=== PATIENT | male | born 1970 | race Caucasian/White ===

== ENCOUNTER 2022-03-24 03:35 | Emergency (ER) | payer OTHER ==
[~2022-03-24] VITALS: Ht 175.3 cm; Wt 86.4 kg
[2022-03-24] MEDS ORDERED: KETOROLAC TROMETHAMINE 30 MG/ML VIAL IM ONE (03:45)
[2022-03-24] MEDS ORDERED: ACETAMINOPHEN 500 MG TABLET PO ONE (03:45)
[2022-03-24 04:30] LABS: BASOPHILS % (AUTO) 0.9 % (0.0-2.0); EOSINOPHILS % (AUTO) 0.9 % (1.0-6.0); HEMATOCRIT 40.1 % (41-53); HEMOGLOBIN 13.8 g/dL (13.5-17.5); LYMPHOCYTES % (AUTO) 9.3 % (22.0-44.0); MEAN CORPUSCULAR HEMOGLOBIN 30.9 pg (26.0-34.0); MEAN CORPUSCULAR HGB CONC 34.5 G/dL (31.0-37.0); MEAN CORPUSCULAR VOLUME 90 fL (80-100); MONOCYTES # (AUTO) 0.8 K/uL (0.1-1.0); MONOCYTES % (AUTO) 6.6 % (2.0-9.0); NEUTROPHILS # (AUTO) 9.3 K/uL (1.8-7.7); NEUTROPHILS % (AUTO) 82.3 % (40.0-70.0); PLATELET COUNT (AUTO) 291 K/uL (150-450); RED BLOOD CELL COUNT(AUTO) 4.48 MIL/uL (4.50-5.90); RED CELL DISTRIBUTION WIDTH 13.1 % (11.5-14.5)
[2022-03-24 04:38] LABS: ANION GAP 7 mmol/L (8-16); CALCIUM, TOTAL 8.8 mg/dL (8.8-10.5); CARBON DIOXIDE 27 mmol/L (22-29); CHLORIDE 105 mmol/L (98-107); CREATININE 1.01 mg/dL (0.60-1.30); GLOMERULAR FILTR. RATE CALC > 60 mL/min (>60); GLUCOSE,RANDOM 105 mg/dL (70-110); POTASSIUM 3.8 mmol/L (3.5-5.1); SODIUM SERUM 139 mmol/L (136-145); UREA NITROGEN, BLOOD 19 mg/dL (7-18)
[2022-03-24] MEDS ORDERED: IOHEXOL 350 MG/ML 150 ML VIAL ONE (04:47)
[2022-03-24] MEDS ORDERED: SODIUM CHLORIDE 0.9% 100 ML ONE (04:47)
[2022-03-24] MEDS ORDERED: LIDOCAINE 1%/EPI 1:100,000 30 ML VIAL SQ ONE (05:00)
[2022-03-24 05:48] LABS: PROTHROMBIN TIME 10.7 SEC (9.4-11.6)
[2022-03-24] MEDS ORDERED: FentaNYL CITRATE PF 100 MCG/2 ML VIAL IVP ONE (06:45)
[2022-03-24 06:47] VITALS: BP 151/91
== END 2022-03-24 07:41 | disposition short-term general hospital (02) ==
LOC: EMS 03:37
DX: S22.42XA Multiple fractures of ribs, left side, initial encounter for closed fracture (principal); S51.012A Laceration without foreign body of left elbow, initial encounter; J94.2 Hemothorax; F17.210 Nicotine dependence, cigarettes, uncomplicated; F15.10 Other stimulant abuse, uncomplicated; Z91.013 Allergy to seafood; W11.XXXA Fall on and from ladder, initial encounter; Y93.89 Activity, other specified; Y92.89 Other specified places as the place of occurrence of the external cause; Y99.8 Other external cause status
CPT/HCPCS: 12001; 36415; 71045; 71260; 73080; 74177; 80048; 85025; 85610; 96372; 96374; 99285; J1885; J3010; J3490; J7050; Q9967; 72193; 74160